=== PATIENT | male | born 1955 | race Caucasian/White ===

== ENCOUNTER 2017-04-18 12:51 | Emergency (ER) | payer BC ==
[2017-04-18 12:59] VITALS: BP 126/89
[2017-04-18] MEDS ORDERED: DIPH/PERTUSS(ACELL)/TETANUS VAC/PF 0.5 ML SYR (>=10YO) IM ONE (13:17)
--- NOTE | 2017-04-18 13:19 | ER Document Report ---
ED Medical Screen (RME) - General Chief Complaint: Laceration Stated Complaint: LACERATION ON FINGER Time Seen by Provider: 04/18/17 13:17 Mode of Arrival: Ambulatory Information source: Patient TRAVEL OUTSIDE OF THE [place] IN LAST 30 DAYS: No - HPI Patient complains to provider of: cut finger Onset: Other - pt is on coumadin and cut L index finger on jukebox checker earlier this am. Tet - OOD - Related Data Allergies/Adverse Reactions: No Known Allergies Allergy (Verified 04/18/17 12:52) Physical Exam - Vital signs Vitals: Temp Pulse Resp BP Pulse Ox 98.1 F 82 18 126/89 H 97 04/18/17 12:56 04/18/17 12:56 04/18/17 12:56 04/18/17 12:56 04/18/17 12:56 Course - Vital Signs Vital signs: Temp Pulse Resp BP Pulse Ox 98.1 F 82 18 126/89 H 97 04/18/17 12:56 04/18/17 12:56 04/18/17 12:56 04/18/17 12:56 04/18/17 12:56
[2017-04-18] MEDS ORDERED: LIDOCAINE 1% INJ-PF (10 MG/ML) 30 ML SDV INJ ONE (15:48)
--- NOTE | 2017-04-18 16:26 | ER Document Report ---
HPI - HPI Patient complains to provider of: Finger laceration Onset: This afternoon Onset/Duration: Sudden Quality of pain: Achy Pain Level: 1 Context: Patient states that he accidentally cut his left second finger with a kick boxer at this morning. Patient states initially the bleeding would not stop readily. Patient does take Coumadin. Associated Symptoms: Other - Finger laceration Exacerbated by: Denies Relieved by: Denies Similar symptoms previously: No Recently seen / treated by doctor: Yes - ROS ROS below otherwise negative: Yes Systems Reviewed and Negative: Yes All other systems reviewed and negative - CONSTITUTIONAL Constitutional: DENIES: Fever - MUSCULOSKELETAL Musculoskeletal: REPORTS: Extremity pain - DERM Skin Color: Normal Skin Problems: Laceration Past Medical History - General Information source: Patient - Social History Smoking Status: Never Smoker Chew tobacco use (# tins/day): No Drug Abuse: None Occupation: Retired Lives with: Spouse/Significant other Family History: Reviewed & Not Pertinent Patient has suicidal ideation: No Patient has homicidal ideation: No - Past Medical History Cardiac Medical History: Reports: Hx Hypercholesterolemia, Hx Hypertension Renal/ Medical History: Denies: Hx Peritoneal Dialysis Past Surgical History: Reports: Hx Cardiac Surgery - open heart for mechanical valve placement, Hx Kidney (Renal Surgery) - 1/4 of left kidney removed, Hx Nose Surgery, Hx Orthopedic Surgery - left bicep - Immunizations Hx Diphtheria, Pertussis, Tetanus Vaccination: No Vertical Provider Document - CONSTITUTIONAL Agree With Documented VS: Yes Exam Limitations: No Limitations General Appearance: WD/WN, No Apparent Distress - INFECTION CONTROL TRAVEL OUTSIDE OF THE [place] IN LAST 30 DAYS: No - HEENT HEENT: Atraumatic, Normocephalic - NECK Neck: Normal Inspection - RESPIRATORY Respiratory: No Respiratory Distress O2 Sat by Pulse Oximetry: 97 - CARDIOVASCULAR Cardiovascular: Regular Rate, Regular Rhythm Pulses: Normal: Radial - BACK Back: Normal Inspection - MUSCULOSKELETAL/EXTREMETIES Musculoskeletal/Extremeties: CHANDRA NGUYEN - NEURO Level of Consciousness: Awake, Alert, Appropriate Motor/Sensory: No Motor Deficit - DERM Integumentary: Warm, Dry, Laceration - 2.5 cm laceration to left thumb, no active bleeding Course - Vital Signs Vital signs: Temp Pulse Resp BP Pulse Ox 98.1 F 82 18 126/89 H 97 04/18/17 12:56 04/18/17 12:56 04/18/17 12:56 04/18/17 12:56 04/18/17 12:56 - Laboratory Laboratory results interpreted by me: 04/18/17 19:06 Labs- Entire Visit 04/18/17 16:25 PT 21.1 H INR 1.71 Procedures - Laceration/Wound Repair Left 2nd digit Wound length (cm): 2.5 Wound's Depth, Shape: Irregular, Flap Anesthetic type: 1% Lidocaine Wound explored: Clean Wound Repaired With: Sutures Suture Size/Type: 5:0, Nylon Number of Sutures: 4 Layer Closure?: No Post-procedure wound care: Sterile dressing applied Post-procedure NV exam normal: Yes Complications: Yes Discharge - Discharge Clinical Impression: Finger laceration Qualifiers: Encounter type: initial encounter Finger: index finger Damage to nail status: without damage Foreign body presence: without foreign body Laterality: left Qualified Code(s): S61.211A - Laceration without foreign body of left index finger without damage to nail, initial encounter Condition: Stable Disposition: HOME, SELF-CARE Instructions: Laceration Care (OM), Soap Cleansing (OM), Tetanus Immunization Given (OM) Additional Instructions: Return immediately for any new or worsening symptoms Followup with your primary care provider, call tomorrow to make a followup appointment Suture removal in 10 days Referrals: MORRIS JIANG, [ACTIVE STAFF] - Follow up as needed
[2017-04-18 16:42] LABS: INTERNATIONAL RATION (INR) 1.71; PROTHROMBIN TIME 21.1 SEC (11.4-15.4)
== END 2017-04-18 17:45 | disposition home or self-care (01) ==
LOC: ER 12:51
DX: S61.211A Laceration without foreign body of left index finger without damage to nail, initial encounter (principal); W45.8XXA Other foreign body or object entering through skin, initial encounter; I10 Essential (primary) hypertension; Z95.2 Presence of prosthetic heart valve; Z79.01 Long term (current) use of anticoagulants
CPT/HCPCS: 36415; 85610; 90471; 90715; 99283

== ENCOUNTER 2019-01-02 07:33 | Day surgery (SDC) | payer MEDICARE, OTHER ==
[2019-01-02 08:55] LABS: INTERNATIONAL RATION (INR) 1.18; PROTHROMBIN TIME 15.1 SEC (11.4-15.4)
[2019-01-02 08:56] LABS: PARTIAL THROMBOPLASTIN TIME 32.8 SEC (23.5-35.8)
--- NOTE | 2019-01-02 11:59 | RADIOLOGY REPORT (SQ) ---
EXAM DESCRIPTION: CT LUMBAR SPINE WITH; MYELOGRAM LUMBAR COMPLETED DATE/TIME: 01/02/2019 10:17 am; 01/02/2019 10:23 am REASON FOR STUDY: RADICULOPATHY LUMBAR REGION M54.16 RADICULOPATHY, LUMBAR REGION Z79.01 [facility] (CURRENT) USE OF ANTICOAGULANTS COMPARISON: None. FLUOROSCOPY TIME: 2.8 minutes 13 images saved to PACS. TECHNIQUE: Fluoroscopic guided lumbar myelogram. LIMITATIONS: There is contrast both in the epidural as well as intrathecal location. PROCEDURE: After written consent and assessment were obtained, the patient was brought into the fluo roscopy room and placed prone on the table. The patient's lower back was prepped in a sterile fashio n and an entry site was selected under live fluoroscopic guidance. The entry site was anesthetized wi th 1% lidocaine. The spinal needle was advanced through the skin and into the thecal sac at the level of L4-L5. Contrast was injected into the thecal sac. Following the procedure the needle was remove d and a sterile bandage was placed of the site. CONTRAST: 13 mL Omnipaque 180. IMAGES ACQUIRED: 13 TECHNIQUE: After performing lumbar myelogram, axial images were acquired through the lumbar spine wi thout intravenous contrast. Images reviewed with lung, soft tissue and bone windows. Reconstructed coronal and sagittal MPR images reviewed. All images stored on PACS. All CT scanners at this facility use dose modulation, iterative reconstruction, and/or weight based d osing when appropriate to reduce radiation dose to as low as reasonably achievable (ALARA). [facility]: Dose Right [facility]: CareDose [facility]: Dose Right [facility]: Teradose 4D [facility]: [employer] FINDINGS: SEGMENTATION: There is transitional anatomy with a well-formed disc at S1-S2. ALIGNMENT: There is retrolisthesis of L3 on L4. Slight retrolisthesis of L2 on L3. VERTEBRAL BODIES: No fractures. No dislocation. No acute findings. HARDWARE: None in the spine. DISCS: L1-L2: No significant protrusions. No significant stenosis. L2-L3: Broad-based disc/ osteophyte complex with moderate central canal stenosis. There is bilateral foraminal narrowing. L3-L4: Broad-based disc/osteophyte complex. Moderate central stenosis and bilateral foraminal stenos is. L4-L5: Broad-based annular disc bulging. Moderate central stenosis and bilateral foraminal stenosis. L5-S1: Mild to moderate central stenosis. Bilateral foraminal stenosis. Changes secondary to facet arthropathy and bilateral annular disc bulging. PEDICLES, TRANSVERSE PROCESSES: No fractures. No dislocation. No acute findings. FACETS, POSTERIOR ELEMENTS: Facet arthropathy from the L2-L3 level through L5-S1. VISUALIZED RIBS: No fractures. SOFT TISSUES: No significant or acute finding in adjacent soft tissues. OTHER: No other significant finding. IMPRESSION: Somewhat limited study secondary to both extradural and intradural location of the contr ast. Broad-based disc/ osteophyte complex at L2-L3 with moderate central stenosis. There is bilateral for aminal narrowing. Broad-based disc/ osteophyte complex at L3-L4 with moderate central stenosis and bilateral foraminal stenosis. Broad-based annular disc bulging at L4-L5 with moderate central stenosis and bilateral foraminal sten osis. Mild to moderate central stenosis at L5-S1 with bilateral foraminal stenosis. Changes are secondary to facet arthropathy and annular disc bulging. COMMENT: Patient medication list reviewed: Yes- Quality ID# [id number]:Eligible professional attests to doc umenting in the medical record they obtained, updated, or reviewed the patient's current medications. TECHNICAL DOCUMENTATION: JOB ID: [id number] Quality ID # [id number]: Final reports with documentation of one or more dose reduction techniques (e.g., Au tomated exposure control, adjustment of the mA and/or kV according to patient size, use of iterative reconstruction technique) 2010 [employer]- All Rights Reserved Reading location - IP/workstation name: [email or web address]
--- NOTE | 2019-01-02 11:59 | RADIOLOGY REPORT (SQ) ---
EXAM DESCRIPTION: CT LUMBAR SPINE WITH; MYELOGRAM LUMBAR COMPLETED DATE/TIME: 01/02/2019 10:17 am; 01/02/2019 10:23 am REASON FOR STUDY: RADICULOPATHY LUMBAR REGION M54.16 RADICULOPATHY, LUMBAR REGION Z79.01 [facility] (CURRENT) USE OF ANTICOAGULANTS COMPARISON: None. FLUOROSCOPY TIME: 2.8 minutes 13 images saved to PACS. TECHNIQUE: Fluoroscopic guided lumbar myelogram. LIMITATIONS: There is contrast both in the epidural as well as intrathecal location. PROCEDURE: After written consent and assessment were obtained, the patient was brought into the fluo roscopy room and placed prone on the table. The patient's lower back was prepped in a sterile fashio n and an entry site was selected under live fluoroscopic guidance. The entry site was anesthetized wi th 1% lidocaine. The spinal needle was advanced through the skin and into the thecal sac at the level of L4-L5. Contrast was injected into the thecal sac. Following the procedure the needle was remove d and a sterile bandage was placed of the site. CONTRAST: 13 mL Omnipaque 180. IMAGES ACQUIRED: 13 TECHNIQUE: After performing lumbar myelogram, axial images were acquired through the lumbar spine wi thout intravenous contrast. Images reviewed with lung, soft tissue and bone windows. Reconstructed coronal and sagittal MPR images reviewed. All images stored on PACS. All CT scanners at this facility use dose modulation, iterative reconstruction, and/or weight based d osing when appropriate to reduce radiation dose to as low as reasonably achievable (ALARA). [facility]: Dose Right [facility]: CareDose [facility]: Dose Right [facility]: Teradose 4D [facility]: [employer] FINDINGS: SEGMENTATION: There is transitional anatomy with a well-formed disc at S1-S2. ALIGNMENT: There is retrolisthesis of L3 on L4. Slight retrolisthesis of L2 on L3. VERTEBRAL BODIES: No fractures. No dislocation. No acute findings. HARDWARE: None in the spine. DISCS: L1-L2: No significant protrusions. No significant stenosis. L2-L3: Broad-based disc/ osteophyte complex with moderate central canal stenosis. There is bilateral foraminal narrowing. L3-L4: Broad-based disc/osteophyte complex. Moderate central stenosis and bilateral foraminal stenos is. L4-L5: Broad-based annular disc bulging. Moderate central stenosis and bilateral foraminal stenosis. L5-S1: Mild to moderate central stenosis. Bilateral foraminal stenosis. Changes secondary to facet arthropathy and bilateral annular disc bulging. PEDICLES, TRANSVERSE PROCESSES: No fractures. No dislocation. No acute findings. FACETS, POSTERIOR ELEMENTS: Facet arthropathy from the L2-L3 level through L5-S1. VISUALIZED RIBS: No fractures. SOFT TISSUES: No significant or acute finding in adjacent soft tissues. OTHER: No other significant finding. IMPRESSION: Somewhat limited study secondary to both extradural and intradural location of the contr ast. Broad-based disc/ osteophyte complex at L2-L3 with moderate central stenosis. There is bilateral for aminal narrowing. Broad-based disc/ osteophyte complex at L3-L4 with moderate central stenosis and bilateral foraminal stenosis. Broad-based annular disc bulging at L4-L5 with moderate central stenosis and bilateral foraminal sten osis. Mild to moderate central stenosis at L5-S1 with bilateral foraminal stenosis. Changes are secondary to facet arthropathy and annular disc bulging. COMMENT: Patient medication list reviewed: Yes- Quality ID# [id number]:Eligible professional attests to doc umenting in the medical record they obtained, updated, or reviewed the patient's current medications. TECHNICAL DOCUMENTATION: JOB ID: [id number] Quality ID # [id number]: Final reports with documentation of one or more dose reduction techniques (e.g., Au tomated exposure control, adjustment of the mA and/or kV according to patient size, use of iterative reconstruction technique) 2010 [employer]- All Rights Reserved Reading location - IP/workstation name: [email or web address]
[2019-01-02 13:10] VITALS: BP 120/65
== END 2019-01-02 12:25 | disposition home or self-care (01) ==
LOC: RAD 07:33
PROVIDERS: ATTEND Physician Assistant
DX: M54.16 Radiculopathy, lumbar region (principal); Z79.01 Long term (current) use of anticoagulants; M51.86 Other intervertebral disc disorders, lumbar region
CPT/HCPCS: 36415; 72132; 72265; 85610; 85730